=== PATIENT | female | born 1995 | race Caucasian/White ===

== ENCOUNTER 2018-03-17 10:51 | Emergency (ER) | payer SELFPAY ==
[~2018-03-17] VITALS: Ht 172.7 cm; Wt 66.4 kg
[2018-03-17 11:02] VITALS: BP 136/96
== END 2018-03-17 12:31 ==
LOC: ED 12:00
DX: S01.01XD Laceration without foreign body of scalp, subsequent encounter (principal); X58.XXXD Exposure to other specified factors, subsequent encounter
CPT/HCPCS: 99281